=== PATIENT | male | born 1985 | race Caucasian/White ===

== ENCOUNTER 2023-03-21 13:38 | Emergency (ER) | payer MEDICAID ==
[~2023-03-21] VITALS: Ht 175.3 cm; Wt 80.8 kg
[2023-03-21 13:58] VITALS: BP 117/78
[2023-03-21] MEDS ORDERED: CefTRIAXone 250MG IM Kit w/LIDOcaine IM STA (14:43)
[2023-03-21] MEDS ORDERED: DOXYCYCLINE 100MG CAPSULE PO ONE (14:45)
[2023-03-21] MEDS ORDERED: azithromycin 250mg tablet PO ONE (14:45)
[2023-03-21] MEDS ORDERED: DOXY-411 PO (16:27)
== END 2023-03-21 17:06 | disposition home or self-care (01) ==
LOC: ER 13:39
DX: A53.9 Syphilis, unspecified (principal)
CPT/HCPCS: 36415; 86592; 87491; 87591; 96372; 99283; J0696